=== PATIENT | male | born 2005 | race Caucasian/White ===

== ENCOUNTER 2024-11-01 12:20 | Emergency (ER) | payer OTHER, SELFPAY ==
[2024-11-01 12:24] VITALS: BP 147/93
[2024-11-01 13:20] LABS: COVID-19 Antigen Negative (Negative)
[2024-11-01 13:30] LABS: ALT (SGPT) 22 U/L (0-50); AST (SGOT) 30 U/L (17-59); Albumin 5.0 g/dl (3.5-5.0); Alkaline Phosphatase 58 U/L (38-126); Blood Urea Nitrogen 12 mg/dl (9-20); Calcium 10.0 mg/dl (8.4-10.2); Carbon Dioxide 22 mmol/L (22-30); Chloride 106 mmol/L (98-107); Glucose 101 mg/dl (70-99); Potassium 4.6 mmol/L (3.5-5.1); Sodium 138 mmol/L (135-145); Total Protein 7.6 g/dl (6.3-8.2); eGFR > 60.00
--- NOTE | 2024-11-01 13:49 | ED.GENMED ---
History of Present Illness
General
Chief Complaint: Cold/Flu/URI Symptoms
Source: patient
Exam Limitations: none
Time Seen by Provider: 11/01/24 13:20
Nursing documentation reviewed up to this point in time: agreed with
History of Present Illness
History of Present Illness:
18-year-old male college student cough congestion low-grade fevers treated with some antibiotics for sinus infection sounds like it was amoxicillin improved initially, symptoms returned when he stopped antibiotics no sick contacts no drugs or
alcohol, also has some pressure in his ears
Past History
Past History
ED Past Medical History: None
ED Past Surgical History: None
Social History
Tobacco: Non-smoker
Alcohol: None
Drug: None
Personal: Single
Living: with family
Employment: Student
Review of Systems
Review of Systems
All Other Systems: Not applicable
Constitutional: Reports fever
EENT: Reports runny nose; Denies sore throat or mouth pain
Respiratory: Reports cough
ABD/GI: Reports no symptoms
: Reports no symptoms
Musculoskeletal: Reports no symptoms
Neurological: Reports other (Fullness in his ear)
Phy Exam
Physical Exam
Physical Exam:
Physical Exam
General: no apparent distress, not acutely ill
Neck: Bilateral TMs red and retracted stuffy sounding voice
Heart: s1/s2 regular rate and rhythm, no murmur. equal radial pulses.
Lungs: no acute respiratory distress. Occasional rhonchi
Abdomen: Nontender
Neuro: alert and oriented. no focal neurological deficits
Skin: no rash
Psychiatric: well kept. interactive and cooperative
Extremities: no edema.
Course
Orders/Labs/Results
Orders:
Orders
11/01/24 12:27
CR Chest - 2 Views Urgent
Comment:
Reason For Exam: chest congestion, fever
11/01/24 12:49
COVID-19 Antigen Urgent
Source: Nasal Swab
Comprehensive Metabolic Panel Urgent
Monotest Urgent
Influenza A+B Rapid Molecular Urgent
ADAM Source: Nasal Swab
Specimen Description:
11/01/24 13:14
Complete Blood Count/With Diff Urgent
11/01/24 13:40
Doxycycline [Vibramycin] 100 mg PO NOW STA
Prednisone [Deltasone] 50 mg PO NOW STA
Abnormal Lab Results
11/01/24
12:49
Glucose 101 H mg/dl
(70-99)
Total Bilirubin 1.9 H mg/dl
(0.2-1.3)
11/01/24 12:49
Vital Signs
Initial and Last Documented VS:
Initial Vital Signs
Temp Pulse Resp BP Pulse Ox
98.5 F 75 16 147/93 100
11/01/24 12:24 11/01/24 12:24 11/01/24 12:24 11/01/24 12:24 11/01/24 12:24
Last Documented Vital Signs
Temp Pulse Resp BP Pulse Ox
98.5 F 75 16 147/93 100
11/01/24 12:24 11/01/24 12:24 11/01/24 12:24 11/01/24 12:24 11/01/24 13:49
MDM/Problems Addressed
Differential Diagnosis Includes:
Sinusitis bronchitis pneumonia
MDM/Problems Addressed:
URI symptoms
*Radiology
Radiology exam reviewed: preliminary read by ED provider
*Pulse Oximetry
SaO2: 100
Oxygen Mode of Delivery: Room air
Patient hypoxic: no
*Critical Care Note
Total Time (30-74mins, 75-104mins- exclusive of procedures): Not Applicable
Update Note
Update Note:
Update, patient was sinus URI symptoms, had been on antibiotics we will switch to Doxy a burst of steroids and Mucinex, PCP follow-up
ED Attending Note
-
Portions of this chart may have been created with voice recognition software.� Occasional wrong word or��sound alike� substitutions may have occurred due to the inherent limitations of voice recognition software.
Discharge Plan
Departure
Patient Disposition: Home (Routine Discharge)
Date of Disposition: 11/01/24
Time of Disposition: 13:40
Patient with high blood pressure during this ER visit?: No
Condition: Good
Discharge Problem:
Acute sinusitis
Instructions: Sinusitis in adults - ED discharge instructions
Prescriptions:
New
guaifenesin [Mucinex] 1,200 mg tablet extended release 12hr
1,200 mg PO BID PRN (Reason: Congestion) Qty: 20 0RF
doxycycline monohydrate 100 mg capsule
100 mg PO BID Qty: 14 0RF
prednisone 50 mg tablet
50 mg PO DAILY Qty: 5 0RF
Referrals:
[facility] [Provider Group] - Follow up in 5-7 days
UNKNOWN - PT DOES,NOT KNOW [Family Provider]
Discharge Date and Time
Print Language: WELSH
[2024-11-01] MEDS: VIBRAMYCIN 100 MG PO (13:53)
[2024-11-01] MEDS: DELTASONE 50 MG PO (13:53)
[2024-11-01 14:21] VITALS: BP 125/68
== END 2024-11-01 14:22 | disposition home or self-care (01) ==
LOC: EMR 12:20
PROVIDERS: Emergency Medicine; EMERGENCY PHYSICIAN Emergency Medicine
DX: J01.90 Acute sinusitis, unspecified (principal); Z11.52 Encounter for screening for COVID-19
CPT/HCPCS: 99284; 71046; 80053; 86308; 87502; 87811